=== PATIENT | female | born 1995 | race Caucasian/White ===

== ENCOUNTER 2019-07-26 13:36 | Outpatient (CLI) | payer BC, SELFPAY ==
[2019-07-26] VITALS (8 sets, daily range): BP systolic 150–159; BP diastolic 94–105; PULSE 82–94
[2019-07-26 14:58] LABS: Basophils Percent Auto 0.3 % (0.2-1.2); Eosinophils Absolute Auto 0.1 K/mm3 (0-0.3); Eosinophils Percent Auto 0.4 % (0-4.4); Hematocrit 34.6 % (37.0-47.0); Hemoglobin 10.6 g/dL (12.0-15.0); Immature Granulocyte Absolute 0.05 K/mm3 (0.00-0.031); Immature Granulocyte Percent A 0.4 % (0-0.5); Immature Platelet Fraction Pct 16.5 % (0.9-11.2); Lymphocytes Absolute Auto 2.17 K/mm3 (0.9-3.2); Lymphocytes Percent Auto 18.7 % (18.3-44.2); Mean Corpuscular HGB Conc 30.6 g/dl (32-36); Mean Corpuscular Hemoglobin 23.7 pg (26-34); Mean Corpuscular Volume 77.4 fl (80-100); Mean Platelet Volume 14.4 fl (7.4-10.4); Monocytes Absolute Auto 0.7 K/mm3 (0.1-0.6); Monocytes Percent Auto 6.4 % (2.6-8.5); Neutrophils Absolute Auto 8.6 K/mm3 (1.3-6.7); Neutrophils Percent Auto 73.8 % (45.5-73.1); Platelet Count Result 207 k/mm3 (150-375); Red Blood Count 4.47 M/mm3 (4.2-5.4); Red Cell Distribution Width 15.3 % (11.5-14.5); White Blood Count 11.6 K/mm3 (4.5-10.0)
[2019-07-26 15:09] LABS: Alanine Aminotransferase 17 U/L (4-35); Albumin Level 2.9 g/dL (3.5-5.1); Alkaline Phosphatase 202 U/L (38-126); Aspartate Amino Transferase 33 U/L (14-36); Bilirubin,Total 0.2 mg/dL (0.2-1.3); Blood Urea Nitrogen 9 mg/dL (7-17); Calcium 8.5 mg/dL (8.4-10.2); Carbon Dioxide 23 mmol/L (22-30); Chloride 104 mmol/L (98-107); Estimated Glomerular Filt Rate > 60; Glucose 93 mg/dL (65-105); Potassium 4.2 mmol/L (3.4-5.0); Sodium 136 mmol/L (137-145); Uric Acid 6.9 mg/dL (2.5-7.5)
[2019-07-26 15:56] LABS: Total Protein Urine Random > 600 mg/dL
[2019-07-27 07:31] LABS: Add Urine Microscopic? YES; Appearance Urine Clear (Clear); Bacteria Urine Trace /hpf; Bilirubin Urine Negative (Negative); Blood Urine Negative (Negative); Color Urine Yellow (Yellow); Glucose Urine UA Negative (Negative); Ketones Urine Negative (Negative); Leukocyte Esterase Ur Negative LEU/UL (NEGATIVE); Mucus Urine Rare /lpf; Nitrate Urine Negative (Negative); Protein Urine 3+ mg/dL (Negative); RBC Urine 0-2 /hpf (0-2); Specific Grav Ur 1.017 (1.001-1.035); Squamous Epithelial Cell Urine Few /hpf (Few); Urobilinogen Urine Negative mg/dL (<2.0); WBC Urine 0-3 /hpf (0-3)
== END 2019-07-26 15:55 | disposition home or self-care (01) ==
LOC: ANHOBOP 13:45 → ANHOBPP 13:45
PROVIDERS: Visit Provider Obstetrics & Gynecology
DX: O13.9 Gestational [pregnancy-induced] hypertension without significant proteinuria, unspecified trimester (principal); Z3A.00 Weeks of gestation of pregnancy not specified
CPT/HCPCS: 36415; 59025; 80053; 81001; 82570; 84156; 84550; 85025

== ENCOUNTER 2020-10-01 20:22 | Emergency (ER) | payer BC, SELFPAY ==
[2020-10-01 20:28] VITALS: BP 150/103; PULSE 118; RESP 18; TEMP 36.9; O2SAT 98
[2020-10-01 20:58] LABS: Basophils Absolute Auto 0.1 K/mm3 (0.0-0.1); Basophils Percent Auto 0.4 % (0.2-1.2); Eosinophils Absolute Auto 0.1 K/mm3 (0-0.3); Eosinophils Percent Auto 0.4 % (0-4.4); Hematocrit 36.1 % (37.0-47.0); Hemoglobin 11.7 g/dL (12.0-15.0); Immature Granulocyte Absolute 0.09 K/mm3 (0.00-0.031); Immature Granulocyte Percent A 0.6 % (0-0.5); Lymphocytes Absolute Auto 1.81 K/mm3 (0.9-3.2); Lymphocytes Percent Auto 11.3 % (18.3-44.2); Mean Corpuscular HGB Conc 32.4 g/dl (32-36); Mean Corpuscular Hemoglobin 24.7 pg (26-34); Mean Corpuscular Volume 76.3 fl (80-100); Mean Platelet Volume 11.6 fl (7.4-10.4); Monocytes Absolute Auto 0.8 K/mm3 (0.1-0.6); Monocytes Percent Auto 5.1 % (2.6-8.5); Neutrophils Absolute Auto 13.2 K/mm3 (1.3-6.7); Neutrophils Percent Auto 82.2 % (45.5-73.1); Platelet Count Result 260 k/mm3 (150-375); Red Blood Count 4.73 M/mm3 (4.2-5.4); Red Cell Distribution Width 14.8 % (11.5-14.5)
[2020-10-01 21:04] LABS: Add Urine Microscopic? YES; Appearance Urine Cloudy (Clear); Bacteria Urine Trace /hpf; Bilirubin Urine Negative (Negative); Blood Urine 2+ (Negative); Color Urine Yellow (Yellow); Glucose Urine UA Negative (Negative); Ketones Urine Negative (Negative); Leukocyte Esterase Ur 2+ LEU/UL (Negative); Mucus Urine Rare /lpf; Nitrate Urine Negative (Negative); Protein Urine 2+ mg/dL (Negative); RBC Urine >75 /hpf (0-2); Specific Grav Ur 1.017 (1.001-1.035); Squamous Epithelial Cell Urine Few /hpf (Few); Urobilinogen Urine Negative mg/dL (<2.0); WBC Urine >75 /hpf
[2020-10-01 21:09] LABS: Potassium 4.1 mmol/L (3.4-5.0)
[2020-10-01 21:16] LABS: Anion Gap 5 mmol/L (8-16); Blood Urea Nitrogen 8 mg/dL (7-17); Calcium 8.9 mg/dL (8.4-10.2); Carbon Dioxide 27 mmol/L (22-30); Chloride 105 mmol/L (98-107); Estimated CRCL calculation 119 ml/min; Estimated Glomerular Filt Rate > 60; Glucose 106 mg/dL (65-105); Sodium 137 mmol/L (137-145)
--- NOTE | 2020-10-01 21:48 | ED.FEMALEGU ---
HPI - Female Genitourinary General Chief complaint: Urogenital-Female Stated complaint: UTI, stone? Time Seen by Provider: 10/01/20 21:45 History of Present Illness HPI Narrative: healthy 25 yo female at approximately 19 weeks gestation presents to the ED for a UTI. She reports that she has had UTI symptoms for a couple of weeks. She was started on keflex by her OBGYN. After a few days it did not seem to be working, so she was changed to macrobid. This improved her symptoms, but after it was done they returned. They then started her back on keflex. She went to urgent care today and they sent her here for further evaluation. She reports that a culture was done. She does have right flank pain and nausea. No fever, vomiting, weakness, light headedness. Related Data Home Medications Medication Instructions Recorded Confirmed Gummies 1 tablet PO DAILY 07/21/19 08/01/19 Allergies Allergy/AdvReac Type Severity Reaction Status Date / Time No Known Allergies Allergy Verified 10/01/20 20:31 Review of Systems Review of Systems: All systems reviewed & are unremarkable except as noted in HPI and below Constitutional: Constitutional: Denies fatigue ENT: Reports system reviewed and no additional complaints, except as documented Cardiovascular: Cardiovascular: Denies chest pain Respiratory: Respiratory: Denies dyspnea Gastrointestinal: Gastrointestinal: Reports nausea and Denies vomiting Genitourinary: Genitourinary: Denies abnormal vaginal bleeding, Reports hematuria, Reports dysuria, Denies urinary incontinence and Denies vaginal discharge Musculoskeletal: Musculoskeletal: Denies back pain Neurologic: Denies dizziness and Denies weakness [facility] Past Medical History Medical History PIH ( induced hypertension) Family History Family History Mother Hyperthyroidism Social History Social History Smoking status: Never smoker Second hand tobacco smoke exposure: No Substance use: never Gender identity (if verbalized by the patient): Female Spiritual care concerns: No Exam Const: General: healthy appearing, no acute distress and alert Orientation/consciousness: patient oriented x3 HENMT: Head: normal to inspection Resp: Effort & Inspection: normal respiratory effort Auscultation: clear to auscultation bilaterally, no rales, no rhonchi and no wheezes Cardio: Jugular venous distension: no JVD Rate: regular rate Rhythm: regular rhythm Heart sounds: no murmurs GI: Inspection: non-distended GI Palp: Yes Soft to palpation and No Tenderness to palpation present (GI) : General: Yes CVA tenderness on the right Skin: General skin exam: normal color Neuro: General: patient oriented x3 and moves all extremities Speech: normal speech Extrem: General: no edema Psych: Appearance: well kempt Affect: normal affect Course Vital Signs Vital signs: Vital Signs Temperature 36.9 C 10/01/20 20:28 Pulse Rate 118 H 10/01/20 20:28 Respiratory Rate 18 10/01/20 20:28 Blood Pressure 150/103 H 10/01/20 20:28 Pulse Oximetry 98 10/01/20 20:28 Temperature 36.9 C 10/01/20 20:28 Pulse Rate 89 10/02/20 00:09 Respiratory Rate 20 10/02/20 00:09 Blood Pressure 138/82 10/02/20 00:09 Pulse Oximetry 98 10/02/20 00:09 MDM - Female Genitourinary MDM Narrative Medical decision making narrative: H&P, labs concerning for possible pyelonephritis. I would like to avoid radiation She appears well adn in no distress. Case discussed with Dr. Donahue. He agrees with giving a dose of ceftriaxone in the ED tonight. They will see her in clinic tomorrow and reassess. Medical Records Attestation: I reviewed the patient's medical records. Lab Data Attestation: I reviewed the patient's lab results. Result
[2020-10-02 00:09] VITALS: BP 138/82; PULSE 89; RESP 20; O2SAT 98
== END 2020-10-02 00:11 | disposition home or self-care (01) ==
PROVIDERS: Emergency Medicine; Emergency Provider Emergency Medicine; PCP Obstetrics & Gynecology
DX: O23.42 Unspecified infection of urinary tract in pregnancy, second trimester (principal); Z3A.19 19 weeks gestation of pregnancy
CPT/HCPCS: 36415; 80048; 81001; 85025; 87086; 87088; 96365; 99284; J0696

== ENCOUNTER 2020-10-15 12:45 | Outpatient (CLI) | payer BC, SELFPAY ==
--- NOTE | ~2020-10-15 | US_ITS ---
EXAMINATION: US OB >= 14 weeks Fetus EXAM DATE: 10/15/2020 13:20 INDICATION: Anatomy,EFW, placental location. 2nd trimester. TECHNIQUE: Pelvic obstetrical transabdominal sonogram was performed by a technologist. There are mu ltiple grayscale and Doppler images available for interpretation. There are no earlier studies of th is gestation for comparison. FINDINGS: There is a single fetus identified in vertex presentation with a heart rate of 150 beats pe r minute. The placenta is located in the anterior position. There is no sonographic evidence of retr oplacental hemorrhage identified. There is subjectively expected amount of amniotic fluid. Placental margin to internal cervical os distance is 8.3 cm. BIOMETRIC DATA: Biparietal diameter (BPD): 5.2cm ----------------> 21 weeks 4 days. Head circumference (HC): 18.7 cm ----------------> 21 weeks 0 days. Abdominal circumference (AC): 16.7 cm ----------> 21 weeks 5 days. Femur length (FL): 3.5 cm --------------------------> 20 weeks 6 days. These measurements are concordant. HC/AC ratio is 1.12 (The 5th -- 95th percentile range is 1.06-1.24. Estimated weight is 414 g +/- 62 g. This is the 46th percentile when the currently reported cl inical gestation age 21 weeks 2 days, clinical estimated date of delivery ([facility]) 02/23/2021 is used. estimated gestational age based on measurements from this exam is 21 weeks 2 days, with an est imated date of delivery ([facility]) 02/23. ANATOMIC SURVEY: The following anatomy is identified and is sonographically normal in appearance: Cerebral ventricles Cerebellum Cisterna magna Nuchal fold CTL-spine Four-chamber heart Diaphragm Stomach Kidneys Bladder Three-vessel cord Cord insertion IMPRESSION: 1. Single fetus in vertex presentation with heart rate 150 beats per minute. 2. Estimated weight of 414 grams, 46th percentile using the currently reported clinical gestat ion age of 21 weeks 2 days, [facility]) 02/23. 3. Normal anatomic survey. 4. Anteriorly located placenta. Reviewed, dictated and finalized at location B. TECHNICIAN IMPRESSION: 1. Single fetus in vertex presentation with heart rate 150 beats per minute. 2. Estimated weight of 414 grams, 46th percentile using the currently re ported clinical gestation age of 21 weeks 2 days, [facility]) 02/23. 3. Normal anatomic survey. 4. Anteriorly located placenta.
== END 2020-10-15 12:46 ==
PROVIDERS: Visit Provider Obstetrics & Gynecology
DX: Z36.9 Encounter for antenatal screening, unspecified (principal); Z3A.21 21 weeks gestation of pregnancy
CPT/HCPCS: 76805

== ENCOUNTER 2021-02-19 15:44 | Outpatient (CLI) | payer OTHER, SELFPAY ==
[2021-02-19 16:08] LABS: Hematocrit 34.6 % (37.0-47.0); Hemoglobin 10.7 g/dL (12.0-15.0); Mean Corpuscular HGB Conc 30.9 g/dl (32-36); Mean Corpuscular Hemoglobin 22.7 pg (26-34); Mean Corpuscular Volume 73.5 fl (80-100); Mean Platelet Volume 11.5 fl (7.4-10.4); Platelet Count Result 249 k/mm3 (150-375); Red Blood Count 4.71 M/mm3 (4.2-5.4); Red Cell Distribution Width 15.5 % (11.5-14.5); White Blood Count 12.7 K/mm3 (4.5-10.0)
[2021-02-20 11:50] LABS: Rapid Plasma Reagin Non-Reactive (NonReactive)
== END 2021-02-19 15:45 | disposition home or self-care (01) ==
PROVIDERS: Visit Provider Obstetrics & Gynecology
DX: Z34.93 Encounter for supervision of normal pregnancy, unspecified, third trimester (principal); Z3A.00 Weeks of gestation of pregnancy not specified
CPT/HCPCS: 36415; 85027; 86592; 86850; 86900; 86901

== ENCOUNTER 2021-02-20 05:31 | Inpatient (IN) | payer OTHER, SELFPAY ==
--- NOTE | 2021-02-19 11:50 | PM.IMHP ---
H&P: HPI History of Present Illness Date/Time: 02/19/21 11:50 26-year-old 2 para 1 whose last menstrual period was 04/29/2020, EDC is 02/23/2021, confirmed by 10 week ultrasound presents at 39+ weeks gestation for repeat section. Her has been uncomplicated. She had an abnormal 1hour diabetic test but passed for over 4 on her 3hour. She had a previous section and declines attempt at she is negative for group B strep Chief Complaint: repeat section at term Review of Systems Review of Systems: All systems reviewed & are unremarkable except as noted in HPI and below PMFSH Past Medical History Medical History PIH ( induced hypertension) Family History Family History Mother Hyperthyroidism Social History Social History Smoking status: Never smoker Second hand tobacco smoke exposure: No Substance use: never Gender identity (if verbalized by the patient): Female Spiritual care concerns: No Meds Home Medications and Allergies Home Medications Medication Instructions Recorded Confirmed Type Gummies 1 tablet PO DAILY 07/21/19 02/09/21 History Allergies Allergy/AdvReac Type Severity Reaction Status Date / Time No Known Allergies Allergy Verified 10/01/20 20:31 Exam Const: General: no acute distress Eyes: General: appearance normal, both eyes and all related structures Neck: Neck: supple and no JVD Thyroid: thyroid normal Resp: Effort & Inspection: normal respiratory effort Auscultation: clear to auscultation bilaterally Cardio: Rate: regular rate Rhythm: regular rhythm GI: Inspection: non-distended GI Palp: Yes Soft to palpation, No Tenderness to palpation present (GI) and No Guarding due to palpation present (GI) Auscultation: normal bowel sounds : External Female Exam: normal external appearance Speculum Exam - Vagina: normal appearance of the vagina Speculum Exam - Cervix: Cervical os closed Bimanual exam- vagina & uterus: enlarged ( gravid soft uterus) Skin: General skin exam: no rashes or lesions noted Extrem: General: normal to inspection and no edema Psych: Mental Status: mental status grossly normal Affect: normal affect Assessment and Plan Additional Plan impression: Term with previous section Plan: Repeat low-transverse section
[2021-02-20] VITALS (57 sets, daily range): BP systolic 89–140; BP diastolic 54–102; PULSE 44–126; RESP 12–18; TEMP 35.4–36.3; O2SAT 87–100; BMI 33.3
--- NOTE | 2021-02-20 05:46 | WPDHPUPDATE1 ---
History and Physical Update Update Date/Time: 02/20/21 05:46 History and Physical has been reviewed, including an updated exam of the patient. There are NO changes in the patient's condition. Risks, benefits, and alternatives have been discussed and questions answered. Patient agrees to proceed with procedure.
--- NOTE | 2021-02-20 06:18 | LDADM ---
This patient, Yari Gardner, was admitted to Labor/Delivery/Recovery 120 on 02/20/21 at 05:31. Plans for labor, pain management and were discussed with patient. Patient/family oriented to hospital policies and general routines including ID bracelet, bed and alarms, visiting hours, pain management, procedures, bathroom and other care routines, personal items, smoking policy, room service/diet and guest tray routines, security routines, and visiting hours. Patient/Family are encouraged to report perceived risks to care and to ask questions if they do not understand what they are told or what they should do. See OBIX for further documentation.
--- NOTE | 2021-02-20 06:28 | WPDANESEPPF ---
Anes - Initial Pre Proc Eval Procedure: Operation Date: 02/20/21 07:30 Proposed Procedures p Repeat Section - Myke Isidro MD Date/Time: 02/20/21 06:28 Surgeon: Myke Isidro MD Pre Op Diagnosis: C Section Patient Data Age: 26 Gender: F Height: 1.63 m Weight: 88 kg Last Vital Signs Pulse 92 02/20/21 06:01 BP 116/78 02/20/21 06:01 Allergies Allergy/AdvReac Type Severity Reaction Status Date / Time No Known Allergies Allergy Verified 10/01/20 20:31 Home Medications Medication Instructions Recorded Confirmed Type Gummies 1 tablet PO DAILY 07/21/19 02/09/21 History hydrocodone-acetaminophen 1 tablet PO Q4H PRN #30 tablet 02/20/21 Rx Patient hx anesthesia problems: none Family hx anesthesia problems: none PMFSH Past Medical History Medical History (Updated 02/20/21 @ 06:29 by Myke Hammonds MD) Asthma Obesity PIH ( induced hypertension) Surgical History Surgical History (Updated 02/20/21 @ 06:29 by Myke Hammonds MD) History of section [place] teeth extracted Family History Family History Mother Hyperthyroidism Social History Social History Smoking status: Never smoker Second hand tobacco smoke exposure: No Substance use: never Gender identity (if verbalized by the patient): Female Spiritual care concerns: No Anes - Eval Final PreProcedure Day of Procedure 02/20/21 06:28 Patient weight: obese Heart: regular rate and rhythm Lungs: clear to auscultation Airway: Mallampati scale class II Neurological: alert and oriented Last oral intake: >/= 8 hours ASA classification: II Emergent: no Anesthetic plan: proceed Anesthesia type and monitoring: regional spinal and standard monitoring Informed Consent: The patient's anesthetic plan and its attendant risks and benefits were discussed with the patient/family/POA. Questions were solicited and answers provided to the satisfaction of the patient/family/POA.
[2021-02-20] MEDS: LACTATED RINGERS 1,000 ML 125 ML IV CONT (06:34)
--- NOTE | 2021-02-20 08:02 | W.PM.PROC2 ---
Procedure Note - Detailed Date of Procedure 02/20/21 Pre-op Diagnosis C Section Post-op Diagnosis same Procedure Performed Repeat low-transverse section Surgeon Myke Isidro MD Anesthesia spinal Indications this is a patient at term previous section who declined Findings male 6 lb 13 oz with Apgars of 8 and 9 at 1 and 5 minutes respectively Description of Procedure the patient was prepped draped in normal sterile fashion placed in the supine position. Under excellent spinal anesthetic the abdomen was entered in Pfannenstiel fashion progressive layers to the fascia. Fascia was incised in upward outward fashion bilaterally. Underlying muscles were sharply dissected. Parietal peritoneum elevated by Angela clamps and entered by sharp dissection. This was carried superiorly and then inferiorly to the dome of the bladder. A bladder blade was placed. A bladder flap was formed. A bladder blade returned. Low-transverse incision made the head delivered in the JESSICA position. Anterior posterior shoulder delivered spontaneously. Cord clamped x2 and cut. passed off the table given Apgars of 9 [id number]. Cord blood was drawn. Placenta was delivered intact manually. Uterus delivered on the abdomen wrapped in a moist towel. After assuring no membranes or debris remained in the uterus, the uterus was closed with continuous running locking 0 Vicryl from lateral edge lateral edge. This was followed by 2nd imbricating running locking 0 Vicryl from lateral edge to lateral edge. Hemostasis was assured. Ovaries and tubes appeared within normal limits. The uterus returned to the abdomen. The incision inspected 1 last time on the uterus and noted be hemostatic. Laps removed and accounted for. The fascia closed with continuous running 0 Vicryl from lateral edge to midline bilaterally. Irrigation the subcutaneous layer and the skin closed with 4 O Monocryl glue. The patient went to recovery in satisfactory condition. All sponge, needle, instrument counts were correct. There were no immediate complications Estimated Blood Loss 170 Drains No Packing No Complications No immediate complications Condition stable
[2021-02-20] MEDS: OXYTOCIN 30 UNITS/NS 500 ML 30 UNITS/500 ML BAG 125 UNITS IV CONT (09:23)
[2021-02-20 09:26] LABS: Amphetamine Screen Urine Negative (Negative); Barbiturate Screen Urine Negative (Negative); Benzodiazepines Screen Urine Negative (Negative); Cannabinoid Screen Urine Positive (Negative); Cocaine Screen Urine Negative (Negative); Methadone Screen Urine Negative (Negative); Opiate Screen Urine Negative (Negative); Phencyclidine Screen Urine Negative (Negative)
--- NOTE | 2021-02-20 10:25 | PC.NURSE ---
Patient transferred to post room #288 per stretcher from labor and delivery. Support person present. Oriented to unit, room, information board, rooming in, admission packet and security measures. Patient verbalizes understanding.
--- NOTE | 2021-02-20 13:15 | PC.NURSE ---
Mother called out for assist with feeding. Mother reports using nipple shield with first child for 3 months, then able to latch without. Mother is pleased this infant is latching without shield. Reviewed feeding cues, frequencies, duration of feedings, feeding elimination flow sheet, and signs of adequate intake. Demonstrated stimulation techniques to wake infant for feeding. Assisted with infant to breast. Reviewed positioning/alignment in cross cradle, holding breast in ?U? hold and guided asymmetrical latch on. able to latch correctly. nursed eagerly, with steady draws and frequent swallowing noted. Reviewed signs of a correct latch, effective nursing and suck swallow ratio. would slip to shallow latch, mother reports tenderness. Demonstrated how to adjust latch more deeply while feeding. Mother reports she can feel change in latch and has no tenderness. Nipple care reviewed of lanolin after feedings, warm compresses and gel pads as needed. Suggested mother stimulate while feeding to increase stimulate, increase intake and to assist with maintaining deep latch. Instructed mother to call out for RN assistance if she is unable to latch infant for feeding or she has discomfort with nursing. Instructed feeding should be initiated three hours from start of last feeding or if feeding cues are noted before. Mother voiced understanding of information shared.
[2021-02-20] MEDS: SIMETHICONE 80 MG TAB.CHEW PO (14:01)
[2021-02-20] MEDS: HYDROcodone/acetaminophen (*CRX) 5-325 MG TABLET 1 TAB PO (15:29)
[2021-02-20] MEDS: IBUPROFEN 600 MG TABLET PO (15:29)
[2021-02-21] MEDS: HYDROcodone/acetaminophen (*CRX) 5-325 MG TABLET 1 TAB PO ×2 (02:37→16:52)
[2021-02-21] MEDS: IBUPROFEN 600 MG TABLET PO ×4 (02:37→23:26)
[2021-02-21 04:40] VITALS: BP 110/68; PULSE 84; RESP 16; TEMP 36.1; O2SAT 100
[2021-02-21 05:26] LABS: Basophils Percent Auto 0.2 % (0.2-1.2); Eosinophils Absolute Auto 0.1 K/mm3 (0-0.3); Eosinophils Percent Auto 0.4 % (0-4.4); Hematocrit 32.8 % (37.0-47.0); Hemoglobin 10.2 g/dL (12.0-15.0); Immature Granulocyte Absolute 0.07 K/mm3 (0.00-0.031); Immature Granulocyte Percent A 0.6 % (0-0.5); Lymphocytes Absolute Auto 1.69 K/mm3 (0.9-3.2); Lymphocytes Percent Auto 13.3 % (18.3-44.2); Mean Corpuscular HGB Conc 31.1 g/dl (32-36); Mean Corpuscular Hemoglobin 22.9 pg (26-34); Mean Corpuscular Volume 73.7 fl (80-100); Monocytes Absolute Auto 1.1 K/mm3 (0.1-0.6); Monocytes Percent Auto 8.8 % (2.6-8.5); Neutrophils Absolute Auto 9.8 K/mm3 (1.3-6.7); Neutrophils Percent Auto 76.7 % (45.5-73.1); Platelet Count Result 223 k/mm3 (150-375); Red Blood Count 4.45 M/mm3 (4.2-5.4); Red Cell Distribution Width 15.4 % (11.5-14.5); White Blood Count 12.7 K/mm3 (4.5-10.0)
--- NOTE | 2021-02-21 06:59 | P.PNOB_ITS ---
OB - PN: Subj Subjective Date/time seen: 02/21/21 06:59 Patient comments: no complaints and pain well controlled baby status: doing well and nursing well OB - PN: Obj Data Labs CBC & Chem 7: 02/21/21 04:44 Labs: Laboratory Results - last 24 hr 02/20/21 02/21/21 08:55 04:44 WBC 12.7 H RBC 4.45 Hgb 10.2 L Hct 32.8 L MCV 73.7 L MCH 22.9 L MCHC 31.1 L RDW 15.4 H Plt Count 223 MPV 12.0 H Immature Gran % (Auto) 0.6 H Neut % (Auto) 76.7 H Lymph % (Auto) 13.3 L [place] % (Auto) 8.8 H Eos % (Auto) 0.4 Baso % (Auto) 0.2 Lymph # (Auto) 1.69 [place] # (Auto) 1.1 H Eos # (Auto) 0.1 Baso # (Auto) 0.0 Abs Immat Gran (auto) 0.07 H Absolute Neuts (auto) 9.8 H Absolute Nucleated RBC 0.0 Nucleated RBC % 0.0 Urine Opiates Screen Negative Urine Methadone Screen Negative Ur Barbiturates Screen Negative Ur Phencyclidine Scrn Negative Ur Amphetamine Screen Negative U Benzodiazepines Scrn Negative Urine Cocaine Screen Negative U Cannabinoids Screen Positive A OB - PN A/P Plan day: 1 Plan: routine care Time Spent With Patient Time: Total time spent is greater than 50% in coordination of care (as documented) at patient's floor/unit and/or counseling patient: Time with patient: less than 15 minutes Review of Systems Review of Systems: All systems reviewed & are unremarkable except as noted in HPI and below Exam Const: General: no acute distress Eyes: General: appearance normal, both eyes and all related structures Neck: Neck: supple and no JVD Thyroid: thyroid normal Resp: Effort & Inspection: normal respiratory effort Auscultation: clear to auscultation bilaterally Cardio: Rate: regular rate Rhythm: regular rhythm GI: Inspection: normal to inspection and incision (cdi) Auscultation: normal bowel sounds : General: Yes bladder normal to palpation External Female Exam: normal external appearance Speculum Exam - Vagina: normal vaginal discharge and No vaginal bleeding Speculum Exam - Cervix: nontender Bimanual exam- vagina & uterus: bladder normal to palpation and No Cervical tenderness present OB/external & speculum: No vaginal bleeding Skin: General skin exam: no rashes or lesions noted Extrem: General: normal to inspection and no edema Psych: Mental Status: mental status grossly normal Affect: normal affect
[2021-02-21 07:30] VITALS: BP 117/82; PULSE 84; PULSE 86; RESP 16; RESP 18; TEMP 36.2; O2SAT 100; O2SAT 99
[2021-02-21] MEDS: MULTIVIT/MIN/PREN/FOL AC/IRON TABLET 1 TAB PO (07:49)
[2021-02-21] MEDS: DOCUSATE SODIUM 100 MG CAPSULE PO ×2 (07:49→16:53)
[2021-02-21] MEDS: SIMETHICONE 80 MG TAB.CHEW PO ×2 (07:49→16:52)
[2021-02-21] MEDS: HYDROcodone/acetaminophen (*CRX) 10-325 MG TABLET 1 TAB PO ×3 (07:50→23:26)
--- NOTE | 2021-02-21 08:15 | WPDANLDPN2 ---
Anes-Prog Note L&D Date/Time: 02/21/21 08:15 Comfortable throughout: section Neuraxial method: spinal Epidural/Spinal procedure site: clean & non-tender Neuro status: Neuro function grossly intact. Cardiovascular status: normal Respiratory status: normal Airway patency: baseline Mental status: baseline Post-Op hydration status: normal Vital Signs: Last Vital Signs Temp 36.1 C L 02/21/21 04:40 Pulse 84 02/21/21 04:40 Resp 16 02/21/21 04:40 BP 110/68 02/21/21 04:40 Pulse Ox 100 02/21/21 04:40 Pain score (VAS): 0/10. Patient resting in bed at time of assessment, appears comfortable. Support person at bedside. I/O: Intake & Output 02/20/21 02/21/21 02/21/21 23:59 07:59 15:59 Intake Total 1340 500 Output Total 700 1000 Balance 640 -500 Post-procedural complaints: none Patient feedback: Patient satisfied with anesthetic care.
--- NOTE | 2021-02-21 08:16 | WPDANLDNPN2 ---
Anes-Prog Note L&D-Neuraxial Date/Time: 02/21/21 08:16 Neuraxial medications: intrathecal PF morphine Opiod-related complaints: none Patient feedback: Patient satisfied with post-operative pain management.
[2021-02-21 20:15] VITALS: BP 116/72; PULSE 99; RESP 16; TEMP 36.2
--- NOTE | 2021-02-21 20:34 | PC.NURSE ---
Patient viewed the discharge video Mother & Baby Care, The First Two Weeks online. Patient was given the opportunity and encouraged to ask questions. Patient verbalized understanding of information shared and has been given the mother/baby guide for home reference.
[2021-02-22] MEDS: HYDROcodone/acetaminophen (*CRX) 10-325 MG TABLET 1 TAB PO (05:34)
[2021-02-22] MEDS: IBUPROFEN 600 MG TABLET PO (05:35)
--- NOTE | 2021-02-22 06:54 | PM.DS ---
DS: Admitting Diagnosis Admitting Diagnosis Admitting Diagnosis: term iup/prev c section DS: Summary Hospital Course Hospital Course: The patient was admitted for repeat section. The procedure itself was unremarkable. Please see the operative report for full details. Her hospital course was unremarkable. She remained afebrile. She was up, voiding without difficulty, ambulating, and general without complaints. Time Spent with Patient Time attestation: Total time spent providing and/or coordinating discharge services: Exam Const: General: no acute distress Eyes: General: appearance normal, both eyes and all related structures Neck: Neck: supple and no JVD Thyroid: thyroid normal Resp: Effort & Inspection: normal respiratory effort Auscultation: clear to auscultation bilaterally Cardio: Rate: regular rate Rhythm: regular rhythm GI: Inspection: non-distended GI Palp: Yes Soft to palpation, No Tenderness to palpation present (GI) and No Guarding due to palpation present (GI) Auscultation: normal bowel sounds : General: Yes bladder normal to palpation External Female Exam: normal external appearance Speculum Exam - Vagina: normal vaginal discharge and No vaginal bleeding Speculum Exam - Cervix: nontender Bimanual exam- vagina & uterus: bladder normal to palpation and No Cervical tenderness present OB/external & speculum: No vaginal bleeding Skin: General skin exam: no rashes or lesions noted Extrem: General: normal to inspection and no edema Psych: Mental Status: mental status grossly normal Affect: normal affect Discharge Plan Discharge Attending physician on discharge: Myke Isidro Discharging Clinician: Myke Isidro Patient Disposition: Home, Self-Care Activity: may shower, no straining, may drive after 2 weeks and pelvic rest Diet: heart healthy Wound Care Instructions: follow printed instructions Patient Instructions: Antibiotic Form Stand Alone Forms: General Discharge Information Follow-up/Referrals: Myke Isidro MD [Physician] - Discharge Medications: New hydrocodone-acetaminophen 5-325 mg tablet 1 tablet PO Q4H PRN (Reason: pain) Qty: 30 RF: 0 Continued Gummies 400 mcg-35 mg- 25 mg-5 mg Tablet,Chewable 1 tablet PO DAILY RF: 0 Date of admission: 02/20/21 05:31 Primary Care Provider: PHYSICIAN,[employer] SAFETY INSPECTOR Admitting Provider: Myke Isidro Attending physician on admission: Myke Isidro Condition: Stable
--- NOTE | 2021-02-22 06:57 | PM.OBPNVD ---
OB - PN: Subj Subjective Date/time seen: 02/22/21 06:57 Patient comments: no complaints and pain well controlled baby status: doing well and nursing well OB - PN: Obj Data Labs CBC & Chem 7: 02/21/21 04:44 OB - PN A/P Plan day: 2 Plan: routine care, discharge home and follow up 6 weeks (4 weeks) Time Spent With Patient Time: Total time spent is greater than 50% in coordination of care (as documented) at patient's floor/unit and/or counseling patient: Time with patient: less than 15 minutes Review of Systems Review of Systems: All systems reviewed & are unremarkable except as noted in HPI and below Exam Const: General: no acute distress Eyes: General: appearance normal, both eyes and all related structures Neck: Neck: supple and no JVD Thyroid: thyroid normal Resp: Effort & Inspection: normal respiratory effort Auscultation: clear to auscultation bilaterally Cardio: Rate: regular rate Rhythm: regular rhythm GI: Inspection: non-distended GI Palp: Yes Soft to palpation, No Tenderness to palpation present (GI) and No Guarding due to palpation present (GI) Auscultation: normal bowel sounds : General: Yes bladder normal to palpation External Female Exam: normal external appearance Speculum Exam - Vagina: normal vaginal discharge and No vaginal bleeding Speculum Exam - Cervix: nontender Bimanual exam- vagina & uterus: bladder normal to palpation and No Cervical tenderness present OB/external & speculum: No vaginal bleeding Skin: General skin exam: no rashes or lesions noted Extrem: General: normal to inspection and no edema Psych: Mental Status: mental status grossly normal Affect: normal affect
[2021-02-22 07:00] VITALS: BP 118/69; PULSE 72; PULSE 99; RESP 16; TEMP 36.4; O2SAT 99
[2021-02-22] MEDS: DOCUSATE SODIUM 100 MG CAPSULE PO (08:48)
[2021-02-22] MEDS: MULTIVIT/MIN/PREN/FOL AC/IRON TABLET 1 TAB PO (08:48)
[2021-02-22] MEDS: SIMETHICONE 80 MG TAB.CHEW PO (08:48)
[2021-02-22] MEDS: HYDROcodone/acetaminophen (*CRX) 5-325 MG TABLET 1 TAB PO (08:49)
[2021-02-23 08:52] VITALS: BP 127/70; PULSE 98; RESP 16; TEMP 37; O2SAT 99
== END 2021-02-22 10:50 | disposition home or self-care (01) | DRG 540 ==
LOC: ANHLDR 05:38 → ANHOB2 10:30
PROVIDERS: Admitting Provider Obstetrics & Gynecology; Visit Provider Obstetrics & Gynecology
PROC: 10D00Z1 Extraction of Products of Conception, Low, Open Approach (ICD-10-PCS; CPT 59514; principal; 2021-02-20 07:30)
DX: O34.211 Maternal care for low transverse scar from previous cesarean delivery (principal); Z3A.39 39 weeks gestation of pregnancy; Z37.0 Single live birth
CPT/HCPCS: 36415; 80307; 85025; A9270; J0131; J2274; J2405; J2590; J7120

== ENCOUNTER 2022-03-21 08:10 | Emergency (ER) | payer OTHER, SELFPAY ==
--- NOTE | 2022-03-21 08:11 | ED.UPPEXIN ---
HPI - Extremity Injury (Upper) General Chief Complaint: Upper Respiratory Infection Stated Complaint: sore throat Time Seen by Provider: 03/21/22 08:11 Source: patient Mode of arrival: ambulatory Limitations: no limitations History of Present Illness HPI narrative: Ms. Escobar is a 27-year-old female patient presenting to the clinic today with complaints of a sore throat x3 days. She reports she has taken 2 COVID test and they both been negative. She has had positive second [employer] party exposure to COVID. She only is complaining of a sore throat and thinks she may have strep. She has had some chills but no known fever. Related Data Home Medications Medication Instructions Recorded Confirmed norethindrone (contraceptive) 0.35 0.35 mg PO DAILY 03/21/22 03/21/22 mg tablet Allergies Allergy/AdvReac Type Severity Reaction Status Date / Time No Known Allergies Allergy Verified 03/21/22 08:19 Review of Systems Review of Systems: Pertinent positives per HPI. Patient denies any fever, chills, rash, headache, visual changes, dizziness, cough, shortness of breath, chest pain, palpitations, nausea, vomiting, diarrhea, constipation, abdominal pain, or any urinary issues. [facility] Past Medical History Medical History Asthma Obesity PIH ( induced hypertension) Surgical History Surgical History History of section [place] teeth extracted Family History Family History Mother Hyperthyroidism Social History Social History Smoking status: Never smoker Second hand tobacco smoke exposure: No Substance use: never Gender identity (if verbalized by the patient): Female Spiritual care concerns: No Comments At the time of my signature, I reviewed and agree with the nursing past medical, surgical, social, and family history. There is no relevant family history pertinent to the patient complaint. Exam Narrative: General: Well-developed, well nourished, in no apparent distress Head: Normocephalic, atraumatic Eyes: Pupils equally round and reactive to light bilaterally, EOM intact, sclera and conjunctive clear, no discharge, lids normal Ears: TMs intact and clear, ear canals clear, no drainage, grossly hearing normal. Nose: Nares patent, no discharge, no inflammation, no sinus tenderness. Mouth: Oral pharynx without lesions or masses, good dentition, MMM. Oropharynx red with tonsillar swelling without exudate Neck: Supple, trachea midline, positive enlargement of anterior cervical nodes, no thyroid masses or goiter palpable. Cardio: Regular rate and rhythm, s1 and s2 normal, no murmur appreciated. Resp: Clear to auscultation bilaterally, no rhonchi, rales, wheezing or rubs Course Course Emergency Course: Portions of this record may have been created with voice recognition software. Level of Care: Express Care Visit Vital Signs Vital signs: Vital Signs Temperature 37.0 C 03/21/22 08:19 Pulse Rate 107 H 03/21/22 08:19 Respiratory Rate 16 03/21/22 08:19 Blood Pressure 111/83 03/21/22 08:19 Pulse Oximetry 99 03/21/22 08:19 Oxygen Delivery Room Air 03/21/22 08:19 Temperature 37.0 C 03/21/22 08:20 Pulse Rate 107 H 03/21/22 08:20 Respiratory Rate 16 03/21/22 08:20 Blood Pressure 111/83 03/21/22 08:20 Pulse Oximetry 99 03/21/22 08:20 Oxygen Delivery Room Air 03/21/22 08:20 Vital signs reviewed MDM - Extremity Injury (Upper) MDM Narrative Medical decision making narrative: At the time of visit patient is resting comfortably on the exam table. Strep screen was obtained Lab Data Labs: Strep Screen Positive Group A Strep *(Reference Range: Negative)*
[2022-03-21 08:19] VITALS: BP 111/83; PULSE 107; RESP 16; TEMP 37; O2SAT 99
[2022-03-21 08:20] VITALS: BP 111/83; PULSE 107; RESP 16; TEMP 37; O2SAT 99
== END 2022-03-21 08:44 | disposition home or self-care (01) ==
LOC: EXPCOLL 08:13
PROVIDERS: Emergency Provider Nurse Practitioner Family
DX: J02.9 Acute pharyngitis, unspecified (principal); J45.909 Unspecified asthma, uncomplicated
CPT/HCPCS: 87880; 99213; G0463

== ENCOUNTER 2022-07-13 17:07 | Emergency (ER) | payer OTHER, SELFPAY ==
--- NOTE | 2022-07-13 17:09 | ED.URI ---
HPI - URI/Sore Throat General Chief Complaint: Nausea/Vomiting/Diarrhea Stated Complaint: Vomiting,Chills,Diarrhea Time Seen by Provider: 07/13/22 17:09 Source: patient Mode of arrival: ambulatory Limitations: no limitations History of Present Illness HPI Narrative: Ms. Gardner is a 27-year-old female patient presenting to clinic today with complaints of vomiting, chills, fever, nausea, sore throat,and diarrhea 2 days. She reports she just started vomiting this morning. She is having some generalized abdominal pain with cramping. She has decreased appetite. MD elicited complaint: sore throat and nasal congestion Related Data Home Medications Medication Instructions Recorded Confirmed norethindrone (contraceptive) 0.35 0.35 mg PO DAILY 03/21/22 03/21/22 mg tablet Allergies Allergy/AdvReac Type Severity Reaction Status Date / Time No Known Allergies Allergy Verified 03/21/22 08:19 Review of Systems Review of Systems: Pertinent positives per HPI. Patient denies any fever, rash, headache, visual changes, dizziness, cough, shortness of breath, chest pain, palpitations, nausea, constipation, or any urinary issues. [facility] Past Medical History Medical History Asthma Obesity PIH ( induced hypertension) Surgical History Surgical History History of section [place] teeth extracted Family History Family History Mother Hyperthyroidism Social History Social History Smoking status: Never smoker Second hand tobacco smoke exposure: No Substance use: never Gender identity (if verbalized by the patient): Female Spiritual care concerns: No Comments At the time of my signature, I reviewed and agree with the nursing past medical, surgical, social, and family history. There is no relevant family history pertinent to the patient complaint. Exam Narrative: General: Well-developed, well nourished, in no apparent distress Head: Normocephalic, atraumatic Eyes: Pupils equally round and reactive to light bilaterally, EOM intact, sclera and conjunctive clear, no discharge, lids normal Ears: TMs intact and clear, ear canals clear, no drainage, grossly hearing normal. Nose: Nares patent, Clear nasal discharge, no inflammation, no sinus tenderness. Mouth: Oral pharynx without lesions or masses, good dentition, MMM. oropharynx red with bilateral tonsillar exudate and swelling. Neck: Supple, trachea midline, enlargement of anterior cervical nodes, no thyroid masses or goiter palpable. Cardio: Regular rate and rhythm, s1 and s2 normal, no murmur appreciated. Resp: Clear to auscultation bilaterally, no rhonchi, rales, wheezing or rubs Abdomen: Soft, bowel sounds present all 4 quadrants, pliable, generalized tenderness to palpation, no CVAT tenderness ,no organomegaly, Course Course Emergency Course: Portions of this record may have been created with voice recognition software. Level of Care: Express Care Visit Vital Signs Vital signs: Vital signs reviewed MDM - URI/Sore Throat MDM Narrative Medical decision making narrative: At the time of visit patient is resting comfortably on the exam table. Strep screen was obtained in the clinic and was positive. Influenza testing was negative. I will treat the patient for strep pharyngitis and gastroenteritis. Prescription for Zofran and amoxicillin was sent to the pharmacy. Supportive measures were discussed with the patient she voiced understanding of discharge instructions and agrees to treatment plan. Differential Diagnosis Differential diagnosis: Likely upper respiratory infection, otitis media, sinusitis, viral infection, bronchitis, influenza, pharyngitis and other ( COVID) Discharge Plan Disc
[2022-07-13 18:04] VITALS: BP 130/83; PULSE 132; RESP 18; TEMP 38.3; O2SAT 100
== END 2022-07-13 18:35 | disposition home or self-care (01) ==
PROVIDERS: Emergency Provider Nurse Practitioner Family
DX: J02.0 Streptococcal pharyngitis (principal); K52.9 Noninfective gastroenteritis and colitis, unspecified
CPT/HCPCS: 87804; 87880; 99213; G0463

== ENCOUNTER 2022-07-16 11:20 | Emergency (ER) | payer OTHER, SELFPAY ==
[2022-07-16 12:49] VITALS: BP 116/82; PULSE 105; RESP 16; TEMP 36.9; O2SAT 99
--- NOTE | 2022-07-16 13:23 | ED.URI ---
HPI - URI/Sore Throat General Chief Complaint: Upper Respiratory Infection Stated Complaint: sore throat Time Seen by Provider: 07/16/22 13:29 Source: patient, RN notes reviewed and old records reviewed Mode of arrival: ambulatory Limitations: no limitations History of Present Illness HPI Narrative: 27-year-old female presents to the [facility] with complaints of continued sore throat. Tested positive on the with strep. Started on amoxicillin. Patient reports amoxicillin has not been working for her normally has take cefdinir elicited complaint: sore throat Related Data Home Medications Medication Instructions Recorded Confirmed norethindrone acetate 1 mg-ethinyl 1 tablet PO DAILY 07/16/22 07/16/22 estradiol 20 mcg tablet (Microgestin) Allergies Allergy/AdvReac Type Severity Reaction Status Date / Time No Known Allergies Allergy Verified 07/16/22 12:35 Review of Systems Review of Systems: All systems reviewed & are unremarkable except as noted in HPI and below Constitutional: Constitutional: Reports no additional constitutional complaints, Denies chills and Denies fever(s) Eyes: Eyes: Reports no additional eye complaints ENT: Reports as per HPI and Reports sore throat Cardiovascular: Cardiovascular: Reports no additional cardiovascular complaints Respiratory: Respiratory: Reports no additional respiratory complaints Gastrointestinal: Gastrointestinal: Reports no additional gastrointestinal complaints Musculoskeletal: Musculoskeletal: Reports no additional musculoskeletal complaints Integumentary/Breasts: Skin/Breast: Reports system reviewed and no additional complaints, except as docu Neurologic: Reports system reviewed and no additional complaints, except as documented Psychiatric: Psychiatric: Reports no additional psychiatric complaints Allergic/Immunologic: Allergic/Immunologic: Reports no additional allergic/immunologic complaints [facility] Past Medical History Medical History Asthma Obesity PIH ( induced hypertension) Surgical History Surgical History History of section [place] teeth extracted Family History Family History Mother Hyperthyroidism Social History Social History Smoking status: Never smoker Second hand tobacco smoke exposure: No Substance use: never Gender identity (if verbalized by the patient): Female Spiritual care concerns: No Comments At the time of my signature, I reviewed and agree with the nursing past medical, surgical, social, and family history. There is no relevant family history pertinent to the patient complaint. Exam Const: General: healthy appearing, comfortable, no acute distress, well developed, alert and well nourished Nutritional Appearance: well nourished Orientation/consciousness: patient oriented x3 Limitations: no limitations HENMT: Head: normal to inspection Ears: external ears normal, TM's normal bilaterally and EAC's normal Face/Nose/Sinus: Normal external nose present and Normal nares present Throat: uvula midline, abnormal tonsil bilateral erythema, exudates and hypertrophy 2+ and no uvular edema Eyes: General: appearance normal, both eyes and all related structures Pupils: Equal, round and reactive pupils present Neck: Neck: normal visual inspection, full ROM, no lymphadenopathy and no meningeal signs Chest: Chest palpation & inspection: normal inspection of the chest Resp: Effort & Inspection: normal respiratory effort and no use of accessory muscles Auscultation: clear to auscultation bilaterally, no crackles, no rales, no rhonchi and no wheezes Cardio: Rate: regular rate Rhythm: regular rhythm Back/Spine/Pelvis: Cervical Spine: cervical ROM
== END 2022-07-16 13:43 | disposition home or self-care (01) ==
PROVIDERS: Emergency Provider Nurse Practitioner
DX: J02.0 Streptococcal pharyngitis (principal); J45.909 Unspecified asthma, uncomplicated; E66.9 Obesity, unspecified; Z68.27 Body mass index [BMI] 27.0-27.9, adult
CPT/HCPCS: 99213; G0463

== ENCOUNTER 2022-08-04 17:31 | Emergency (ER) | payer OTHER, SELFPAY ==
[2022-08-04 18:15] VITALS: BP 134/58; PULSE 122; RESP 20; TEMP 38.1; O2SAT 100
[2022-08-04 20:05] LABS: Strep Group A RT-PCR DETECTED (Negative)
[2022-08-04 20:23] LABS: Influenza A QL RT-PCR Negative (Negative); Influenza B QL RT-PCR Negative (Negative); RSV RNA, RT-PCR Negative (Negative); SARS-CoV-2 RNA PCR Negative
[2022-08-04 20:59] VITALS: O2SAT 100
[2022-08-04] MEDS: IBUPROFEN 400 MG TABLET 800 MG PO (21:46)
[2022-08-04] MEDS: CLINDAMYCIN HCL 150 MG CAP 300 MG PO (21:47)
--- NOTE | 2022-08-04 22:04 | ED.URI ---
HPI - URI/Sore Throat General Chief Complaint: Upper Respiratory Infection Stated Complaint: sore throat Time Seen by Provider: 08/04/22 20:56 Source: patient Mode of arrival: ambulatory Limitations: no limitations History of Present Illness HPI Narrative: 27-year-old female presents today with complaints of sore throat, chills, fever, body aches that started today. Patient recently treated for strep throat on giving with amoxicillin with minimal improvement and then treated with cefdinir. Patient finished her cefdinir about a week ago and now presents today with sore throat, fever, body aches, chills. Patient able to drink fluids without difficulty. Patient able to swallow own saliva and denies difficulty swallowing or shortness of breath. Related Data Home Medications Medication Instructions Recorded Confirmed norethindrone acetate 1 mg-ethinyl 1 tablet PO DAILY 07/16/22 07/16/22 estradiol 20 mcg tablet (Microgestin) Allergies Allergy/AdvReac Type Severity Reaction Status Date / Time No Known Allergies Allergy Verified 08/04/22 18:22 [facility] Past Medical History Medical History Asthma Obesity PIH ( induced hypertension) Surgical History Surgical History History of section [place] teeth extracted Family History Family History Mother Hyperthyroidism Social History Social History Smoking status: Never smoker Second hand tobacco smoke exposure: No Substance use: never Gender identity (if verbalized by the patient): Female Spiritual care concerns: No Exam Narrative: GENERAL: Well-appearing, well-nourished, and in no acute distress. HEAD: Normocephalic, atraumatic. EYES: PERRLA and EOMI. ENT: Nares clear, no rhinorrhea or epistaxis. Mucous membranes moist. Oropharynx tonsils +4 with exudate noted. Uvula midline. NECK: Supple. No adenopathy or masses. CHEST: Clear to auscultation. No respiratory distress. No wheezes rales or rhonchi HEART: Tachycardic with regular rhythm. No murmur heard. Normal peripheral pulses. Course Reevaluation(s) Reevaluation #1: Patient heart rate is improved at 108. Tolerating fluids without difficulty. States she does feel better. Will discharge home. Date: 08/04/22 Time: 22:44 Consultations Consultation #1: Dr. Brar contacted regarding patient. Discussed case. Patient to be discharged with clindamycin and Medrol Dosepak. Plan follow-up with Dr. Brar. Date: 08/04/22 Time: 21:40 Vital Signs Vital signs: Vital Signs Temperature 100.6 F H 08/04/22 18:15 Pulse Rate 122 H 08/04/22 18:15 Respiratory Rate 20 08/04/22 18:15 Blood Pressure 134/58 L 08/04/22 18:15 Pulse Oximetry 100 08/04/22 18:15 Oxygen Delivery Room Air 08/04/22 18:15 Temperature 98.8 F 08/04/22 23:13 Pulse Rate 109 H 08/04/22 23:13 Respiratory Rate 18 08/04/22 23:13 Blood Pressure 120/91 H 08/04/22 23:13 Pulse Oximetry 100 08/04/22 23:13 Oxygen Delivery Room Air 08/04/22 20:59 MDM - URI/Sore Throat MDM Narrative Medical decision making narrative: 27-year-old female HPI as noted. Work-up to include COVID, influenza, RSV swab with strep swab. Low suspicion for mono due to patient's recent treatment of strep pharyngitis with amoxicillin without rash. Strep swab positive. Patient is tachycardic but able to tolerate fluids. Will hydrate with oral fluids and treat with dexamethasone, clindamycin, ibuprofen here. No IV at this time as long as patient tolerates p.o. fluids. Patient tolerated p.o. fluids and heart rate down to 109 temp to 98.8. Discharged home. Differential Diagnosis Differential diagnosis: Likely upper respiratory infection, influenza, pharyngitis and other ([place]) Medical Rec
[2022-08-04 23:13] VITALS: BP 120/91; PULSE 109; RESP 18; TEMP 37.1; O2SAT 100
== END 2022-08-04 23:17 | disposition home or self-care (01) ==
PROVIDERS: Nurse Practitioner Family; Emergency Provider Nurse Practitioner Family
DX: J02.0 Streptococcal pharyngitis (principal); Z20.822 Contact with and (suspected) exposure to COVID-19; J45.909 Unspecified asthma, uncomplicated; E66.9 Obesity, unspecified; Z68.27 Body mass index [BMI] 27.0-27.9, adult
CPT/HCPCS: 87637; 87651; 99283; A9270; J1100